=== PATIENT | female | born 1970 | race Caucasian/White ===

== ENCOUNTER → 2019-02-11 | Outpatient (CLI) | payer BC | LOC: MC.RAD 14:45 | DX: Z12.31 Encounter for screening mammogram for malignant neoplasm of breast (principal); N63.10 Unspecified lump in the right breast, unspecified quadrant ==

== ENCOUNTER → 2019-02-13 | Outpatient (CLI) | payer BC | LOC: MC.RAD 08:59 | DX: N60.11 Diffuse cystic mastopathy of right breast (principal) ==

== ENCOUNTER → 2021-02-01 | Outpatient (CLI) | payer BC | LOC: MC.RAD 10:00 | DX: Z12.31 Encounter for screening mammogram for malignant neoplasm of breast (principal) ==

== ENCOUNTER → 2021-05-04 | Outpatient (CLI) | payer BC | LOC: COL.RAD 07:45 | DX: Z87.440 Personal history of urinary (tract) infections (principal) ==

== ENCOUNTER → 2023-04-19 | Outpatient (CLI) | payer BC | LOC: MC.RAD 12:54 | DX: N60.12 Diffuse cystic mastopathy of left breast (principal) ==